=== PATIENT | female | born 1935 | race Caucasian/White ===

== ENCOUNTER 2017-12-11 12:51 | Day surgery (SDC) | payer MEDICARE, OTHER ==
[~2017-12-11] VITALS: Ht 152.4 cm; Wt 79.4 kg
[~2017-12-11 12:51] MED LIST: ADVIL200 MG PO; ASPIRIN CHEWABL81 MG OR; ASPIRIN EC81 MG PO; B COMPLE2 PO; BETAPACE120 MG OR; BETAPACE80 MG PO; CEPHALEXIN500 MG PO; CHILD'S ASA81 MG PO; CLARITIN10 M2 PO; CLARITIN10 MG PO; COQ-10100 MG PO; DIOVAN HC1 PO; DSF FORMULA PO; FERRAPLUS 90 PO; GINKGO BILOBA500 MG PO; GINKOBA40 MG PO; LORTAB 7.5-3251 TAB PO; LOVASTATIN20 M1 PO; MAGNESIUM-OX400 MG PO; MEDDOSEPAK OR; NITROFURANTOIN100 MG PO; OXYBUTYNIN5 M1 PO; PROVENTIL0.083 % IN; VALIUM5 MG PO; VICODIN1 TAB PO; VITAMIN B-12500 MCG PO; [UNRECOGNIZED DRUG - OTHER] PO
[2017-12-11] MEDS ORDERED: HYDROCODONE/ACE1 TAB PO (17:39)
[2017-12-11 18:34] VITALS: BP 144/70
== END 2017-12-11 18:30 | disposition home or self-care (01) ==
LOC: ORM 12:51
PROVIDERS: ATTEND Orthopaedic Surgery
PROC: 0LN70ZZ Release Right Hand Tendon, Open Approach (ICD-10-PCS; principal; 2017-12-11)
DX: M65.341 Trigger finger, right ring finger (principal)

== ENCOUNTER 2018-06-21 10:42 | Emergency (ER) | payer MEDICARE, OTHER ==
[~2018-06-21] VITALS: Ht 152.4 cm; Wt 75.9 kg
[~2018-06-21 10:42] MED LIST changes: +HYDROCODONE/ACE1 TAB PO
[2018-06-21] MEDS ORDERED: CYCLOBENZAPR5 MG PO ×2 (11:10→11:22)
[2018-06-21 11:20] VITALS: BP 164/81
== END 2018-06-21 11:20 | disposition home or self-care (01) ==
LOC: ED 10:42
DX: M62.838 Other muscle spasm (principal); I10 Essential (primary) hypertension

== ENCOUNTER 2019-01-17 12:21 | Inpatient (IN) | payer MEDICARE, OTHER ==
[~2019-01-17] VITALS: Ht 152.4 cm; Wt 81.9 kg
[~2019-01-17 12:21] MED LIST changes: +CYCLOBENZAPR5 MG PO
[2019-01-17 13:22] LABS: HEMATOCRIT 36.4 % (37.0-47.0); HEMOGLOBIN 11.9 g/dl (12.0-16.0); IMMATURE GRANULOCYTES 0.6 % (0.0-5.0); MEAN CELL VOLUME 98.4 fL CALC (80.0-100.0); MEAN CORPUSCULAR HGB 32.2 pG CALC (26.0-32.0); MEAN CORPUSCULAR HGB CONC 32.7 g/L CALC (32.0-36.0); NEUT# 14.43 thou/uL (2.00-7.15); RED BLOOD COUNT 3.7 mill/uL (4.20-5.60); RED CELL DISTRI WIDTH 13.2 % (11.5-15.5)
[2019-01-17 13:34] LABS: ALKALINE PHOSPHATASE 107 u/l (38-126); AMYLASE 47 u/l (30-110); ANION GAP 16 (6-22 (CALC)); BUN 28 mg/dL (8-23); BUN/CREATININE RATIO 35 (12-20 (CALC)); CARBON DIOXIDE 25 mmol/l (22-30); CHLORIDE 103 mmol/l (95-108); CREATININE 0.8 mg/dL (0.5-1.0); ETHYL ALCOHOL 0 mg/dl (0-30); GFR > 60 ML/MIN (>=60 (CALC)); GFR FOR AFR.AMER. > 60 ML/MIN (>=60 (CALC)); LIPASE 111 u/l (23-300); MAGNESIUM 2.3 mg/dL (1.6-2.3); POTASSIUM 4.4 mmol/l (3.5-5.1); SODIUM 139 mmol/l (137-146); TOTAL PROTEIN 7.3 g/dL (6.3-8.2)
[2019-01-17 13:44] LABS: BILIRUBIN, TOTAL 1.3 mg/dL (0.0-1.4); SGOT/AST 112 u/l (9-36)
[2019-01-17 13:51] LABS: CPK 5999 u/l (30-165)
[2019-01-17 14:28] LABS: URINE BILIRUBIN - DIPSTICK NEGATIVE (NEGATIVE); URINE BLOOD DIPSTICK LARGE (NEGATIVE); URINE COLOR YELLOW; URINE GLUCOSE - DIPSTICK NEGATIVE (NEGATIVE); URINE KETONE TRACE mg/dL (NEGATIVE); URINE LEUK ESTERASE MODERATE (NEGATIVE); URINE NITRITE - DIPSTICK POSITIVE (Negative); URINE PH 5.5 (4.5-8.0); URINE PROTEIN - DIPSTICK 100 mg/dL (NEG-TRACE); URINE SPECIFIC GRAVITY >=1.030; URINE UROBILINOGEN - DIPSTICK 0.2 E.U./dL (0.2)
[2019-01-17 14:29] LABS: URINE BACTERIA FEW hpf; URINE SQUAMOUS EPITHELIAL CELL FEW EPI/hpf (0-FEW); URINE WBC 50-100 WBC/hpf (0-5)
[2019-01-17 14:31] LABS: COCAINE NEGATIVE (NEGATIVE); TETRAHYDROCANNABIONOL NEGATIVE (NEGATIVE)
[2019-01-17 14:32] LABS: BARBITURATES NEGATIVE (NEGATIVE); METHADONE NEGATIVE (NEGATIVE); OXCYCODONE NEGATIVE (NEGATIVE); TRICYLIC ANTIDEPRESSANTS NEGATIVE (NEGATIVE)
[2019-01-17 16:30] VITALS: BP 159/68
[2019-01-17 19:22] VITALS: BP 136/94
[2019-01-18 00:30] VITALS: BP 145/70
[2019-01-18 05:39] VITALS: BP 104/62
[2019-01-18 08:08] VITALS: BP 140/73
[2019-01-18 10:40] VITALS: BP 134/63
[2019-01-18 15:10] VITALS: BP 109/57
[2019-01-18 16:15] LABS: BUN 25 mg/dL (8-23); BUN/CREATININE RATIO 29 (12-20 (CALC)); CARBON DIOXIDE 25 mmol/l (22-30); CHLORIDE 106 mmol/l (95-108); CREATININE 0.9 mg/dL (0.5-1.0); GFR 60 ML/MIN (>=60 (CALC)); GFR FOR AFR.AMER. > 60 ML/MIN (>=60 (CALC)); SODIUM 138 mmol/l (137-146)
[2019-01-18 16:19] LABS: ANION GAP 11 (6-22 (CALC)); CPK > 1600 u/l (30-165); POTASSIUM 3.5 mmol/l (3.5-5.1)
[2019-01-18 19:25] VITALS: BP 145/62
[2019-01-19] VITALS (7 sets, daily range): BP systolic 121–176; BP diastolic 36–81
[2019-01-19 05:15] LABS: IMMATURE GRANULOCYTES 0.7 % (0.0-5.0); MEAN CORPUSCULAR HGB 32.3 pG CALC (26.0-32.0); MEAN CORPUSCULAR HGB CONC 32.3 g/L CALC (32.0-36.0); NEUT# 4.3 thou/uL (2.00-7.15); RED BLOOD COUNT 2.88 mill/uL (4.20-5.60); RED CELL DISTRI WIDTH 13.3 % (11.5-15.5)
[2019-01-19 05:25] LABS: HEMATOCRIT 28.8 % (37.0-47.0); HEMOGLOBIN 9.3 g/dl (12.0-16.0)
[2019-01-19 05:32] LABS: ANION GAP 9 (6-22 (CALC)); BUN 19 mg/dL (8-23); BUN/CREATININE RATIO 25 (12-20 (CALC)); CARBON DIOXIDE 20 mmol/l (22-30); CHLORIDE 108 mmol/l (95-108); CPK 993 u/l (30-165); CREATININE 0.7 mg/dL (0.5-1.0); GFR > 60 ML/MIN (>=60 (CALC)); GFR FOR AFR.AMER. > 60 ML/MIN (>=60 (CALC)); POTASSIUM 3.4 mmol/l (3.5-5.1); SODIUM 135 mmol/l (137-146)
[2019-01-20 00:37] VITALS: BP 157/76
[2019-01-20 04:18] VITALS: BP 143/94
[2019-01-20 05:17] LABS: HEMATOCRIT 27.7 % (37.0-47.0); HEMOGLOBIN 9.1 g/dl (12.0-16.0); IMMATURE GRANULOCYTES 0.8 % (0.0-5.0); MEAN CELL VOLUME 97.5 fL CALC (80.0-100.0); MEAN CORPUSCULAR HGB CONC 32.9 g/L CALC (32.0-36.0); NEUT# 4.04 thou/uL (2.00-7.15); RED BLOOD COUNT 2.84 mill/uL (4.20-5.60); RED CELL DISTRI WIDTH 13.2 % (11.5-15.5)
[2019-01-20 05:41] LABS: ANION GAP 9 (6-22 (CALC)); BUN 13 mg/dL (8-23); BUN/CREATININE RATIO 20 (12-20 (CALC)); CARBON DIOXIDE 23 mmol/l (22-30); CHLORIDE 109 mmol/l (95-108); CPK 415 u/l (30-165); CREATININE 0.7 mg/dL (0.5-1.0); GFR > 60 ML/MIN (>=60 (CALC)); GFR FOR AFR.AMER. > 60 ML/MIN (>=60 (CALC)); POTASSIUM 3.7 mmol/l (3.5-5.1); SODIUM 137 mmol/l (137-146)
[2019-01-20 08:00] VITALS: BP 136/67
[2019-01-20 11:11] VITALS: BP 123/68
[2019-01-20] MEDS ORDERED: KEFLEX500 M1 PO (13:52)
== END 2019-01-20 18:46 | DRG 558 ==
LOC: ED 12:21 → MS2 15:11
PROVIDERS: Nurse Practitioner Family; ADMIT Internal Medicine; ATTEND Internal Medicine
DX: M62.82 Rhabdomyolysis (principal); N39.0 Urinary tract infection, site not specified; I47.1 Supraventricular tachycardia; I10 Essential (primary) hypertension; E78.5 Hyperlipidemia, unspecified; I25.10 Atherosclerotic heart disease of native coronary artery without angina pectoris; S50.312A Abrasion of left elbow, initial encounter; S50.311A Abrasion of right elbow, initial encounter; S80.212A Abrasion, left knee, initial encounter; S80.211A Abrasion, right knee, initial encounter; S00.81XA Abrasion of other part of head, initial encounter; M89.49 Other hypertrophic osteoarthropathy, multiple sites; B96.20 Unspecified Escherichia coli [E. coli] as the cause of diseases classified elsewhere; W06.XXXA Fall from bed, initial encounter; Y92.003 Bedroom of unspecified non-institutional (private) residence as the place of occurrence of the external cause; X58.XXXA Exposure to other specified factors, initial encounter; Z96.612 Presence of left artificial shoulder joint; Z96.611 Presence of right artificial shoulder joint
CPT/HCPCS: G0378

== ENCOUNTER 2019-02-16 | Emergency (ER) | payer MEDICARE, OTHER ==
[~2019-02-16] MED LIST changes: +KEFLEX500 M1 PO
[2019-02-16 11:51] LABS: IMMATURE GRANULOCYTES 0.6 % (0.0-5.0); MEAN CELL VOLUME 97.5 fL CALC (80.0-100.0); MEAN CORPUSCULAR HGB 31.9 pG CALC (26.0-32.0); MEAN CORPUSCULAR HGB CONC 32.7 g/L CALC (32.0-36.0); NEUT# 6.59 thou/uL (2.00-7.15); RED BLOOD COUNT 3.64 mill/uL (4.20-5.60); RED CELL DISTRI WIDTH 13.3 % (11.5-15.5)
[2019-02-16 11:55] LABS: HEMATOCRIT 35.5 % (37.0-47.0); HEMOGLOBIN 11.6 g/dl (12.0-16.0)
[2019-02-16 12:07] LABS: ACT PARTIAL THROMBO TIME 27.8 SECONDS (20.0-32.5); PROTHROMBIN TIME 10.1 SECONDS (9.0-12.5)
[2019-02-16 12:10] LABS: ALBUMIN 3.7 g/dL (3.2-5.0); ALKALINE PHOSPHATASE 106 u/l (38-126); BUN 16 mg/dL (8-23); BUN/CREATININE RATIO 22 (12-20 (CALC)); CHLORIDE 103 mmol/l (95-108); CREATININE 0.7 mg/dL (0.5-1.0); GFR > 60 ML/MIN (>=60 (CALC)); GFR FOR AFR.AMER. > 60 ML/MIN (>=60 (CALC)); POTASSIUM 3.9 mmol/l (3.5-5.1); SODIUM 139 mmol/l (137-146); TOTAL PROTEIN 6.8 g/dL (6.3-8.2)
[2019-02-16 12:12] LABS: ANION GAP 12 (6-22 (CALC)); BILIRUBIN, TOTAL 0.6 mg/dL (0.0-1.4); CARBON DIOXIDE 28 mmol/l (22-30); SGOT/AST 23 u/l (9-36)
== END 2019-02-16 14:00 | disposition home or self-care (01) ==
DX: S60.222A Contusion of left hand, initial encounter (principal); I10 Essential (primary) hypertension; X58.XXXA Exposure to other specified factors, initial encounter

== ENCOUNTER 2019-03-08 | Emergency (ER) | payer MEDICARE, OTHER ==
[2019-03-08 10:50] LABS: HEMATOCRIT 35.1 % (37.0-47.0); HEMOGLOBIN 11.5 g/dl (12.0-16.0); IMMATURE GRANULOCYTES 0.6 % (0.0-5.0); MEAN CELL VOLUME 97.8 fL CALC (80.0-100.0); MEAN CORPUSCULAR HGB CONC 32.8 g/L CALC (32.0-36.0); NEUT# 4.06 thou/uL (2.00-7.15); RED BLOOD COUNT 3.59 mill/uL (4.20-5.60); RED CELL DISTRI WIDTH 13.2 % (11.5-15.5)
[2019-03-08 11:04] LABS: ALBUMIN 4.1 g/dL (3.2-5.0); ALKALINE PHOSPHATASE 110 u/l (38-126); ANION GAP 14 (6-22 (CALC)); BILIRUBIN, TOTAL 0.6 mg/dL (0.0-1.4); BUN 18 mg/dL (8-23); CARBON DIOXIDE 26 mmol/l (22-30); CHLORIDE 106 mmol/l (95-108); CREATININE 0.6 mg/dL (0.5-1.0); GFR > 60 ML/MIN (>=60 (CALC)); GFR FOR AFR.AMER. > 60 ML/MIN (>=60 (CALC)); SGOT/AST 27 u/l (9-36); SODIUM 141 mmol/l (137-146); TOTAL PROTEIN 7.4 g/dL (6.3-8.2)
[2019-03-08 11:16] LABS: MYOGLOBIN 34 ng/mL (0 - 62)
[2019-03-08 11:33] LABS: BUN/CREATININE RATIO 28 (12-20 (CALC))
[2019-03-08 12:44] LABS: URINE BILIRUBIN - DIPSTICK NEGATIVE (NEGATIVE); URINE BLOOD DIPSTICK NEGATIVE (NEGATIVE); URINE COLOR YELLOW; URINE GLUCOSE - DIPSTICK NEGATIVE (NEGATIVE); URINE KETONE NEGATIVE (NEGATIVE); URINE LEUK ESTERASE TRACE (NEGATIVE); URINE NITRITE - DIPSTICK NEGATIVE (Negative); URINE PROTEIN - DIPSTICK NEGATIVE (NEG-TRACE); URINE UROBILINOGEN - DIPSTICK 0.2 E.U./dL (0.2)
== END 2019-03-08 12:30 | disposition short-term general hospital (02) ==
PROVIDERS: Emergency Medicine
PROC: 05HY33Z Insertion of Infusion Device into Upper Vein, Percutaneous Approach (ICD-10-PCS; principal; 2019-03-08)
DX: I61.0 Nontraumatic intracerebral hemorrhage in hemisphere, subcortical (principal); G81.94 Hemiplegia, unspecified affecting left nondominant side; R27.0 Ataxia, unspecified; R29.704 NIHSS score 4; I25.10 Atherosclerotic heart disease of native coronary artery without angina pectoris; I10 Essential (primary) hypertension